=== PATIENT | male | born 1975 | race Caucasian/White ===

== ENCOUNTER 2022-11-18 00:58 | Observation (INO) | payer OTHER ==
[~2022-11-18] VITALS: Ht 182.9 cm; Wt 118.9 kg
[2022-11-18 01:47] LABS: BASOPHILS ABSOLUTE AUTO 0.05 K/mm3 (0.00-0.23); BASOPHILS PERCENT AUTO 0 % (0-2); EOSINOPHILS ABSOLUTE AUTO 0.12 K/mm3 (0.00-0.68); EOSINOPHILS PERCENT AUTO 1 % (0-6); Hemoglobin 15.9 g/dL (13.5-17.5); IMMATURE GRAN ABSOLUTE AUTO 0.13 K/mm3 (0.00-0.10); IMMATURE GRAN PERCENT AUTO 1 % (0-1); LYMPHOCYTES ABSOLUTE AUTO 1.12 K/mm3 (0.84-5.20); LYMPHOCYTES PERCENT AUTO 9 % (21-46); MONOCYTES ABSOLUTE AUTO 0.73 K/mm3 (0.16-1.47); MONOCYTES PERCENT AUTO 6 % (4-13); Mean Corpuscular HGB 29.8 pg (26.0-34.0); Mean Corpuscular HGB Conc 33.8 g/dL (31.5-36.5); Mean Corpuscular Volume 88 fL (80-100); Mean Platelet Volume 10.4 fL (9.1-12.4); NEUTROPHILS ABSOLUTE AUTO 10.69 K/mm3 (1.96-9.15); NEUTROPHILS PERCENT AUTO 83 % (41-73); Platelet Count 239 K/mm3 (150-400); RDW Coefficient Variation 13.9 % (11.7-14.2); RDW Standard Deviation 44.4 fL (35.1-46.3); Red Blood Cell Count 5.34 M/mm3 (4.30-5.90); White Blood Cell Count 12.84 K/mm3 (4.00-11.30)
[2022-11-18 02:00] LABS: Albumin, Blood 3.8 g/dL (3.4-5.0); Bilirubin, Total 1.2 mg/dL (0.1-1.0); Bun/Creatinine Ratio 17.3 (12.0-20.0); Calcium, Blood 9.1 mg/dL (8.5-10.1); Creatinine, Blood 0.81 mg/dL (0.60-1.20); Globulin, Blood 3.9 g/dL (2.2-4.0); Potassium, Blood 3.9 mmol/L (3.5-5.5); Total Protein, Blood 7.7 g/dL (6.4-8.2)
[2022-11-18 02:31] LABS: Source, Urine Clean Catch
[2022-11-18 02:56] LABS: Bilirubin, Urine Neg (Neg); Blood, Urine Neg (Neg); Glucose Qualitative, Urine Neg (Neg); Ketones, Urine Neg (Neg); Leukocyte Esterase, Urine Neg (Neg); Nitrite, Urine Neg (Neg); Protein, Urine 1+ (Neg); Urobilinogen, Urine 1+ (Normal)
[2022-11-18 03:42] LABS: Appearance, Urine Clear (Clear); Color, Urine Yellow (P-Yellow)
--- NOTE | 2022-11-18 05:51 | NUR ---
Patient arrived to unit at 0507, denies nausea and vomitting. States pain has improved and no PRN meds needed at this time. Bowel sounds present, mild pain on palpation. Maintenance fluids started, patient is NPO. Walk to bathroom indepedently. Voiding well. PRN Pain scheduling explained to patient. No questions or concerns at this time.
--- NOTE | 2022-11-18 14:58 | NUR ---
TO MRI VIA WHEELCHAIR
--- NOTE | 2022-11-18 17:06 | NUR ---
returned to room from day surgery. plan per rn is ercp when bed available for transfer
--- NOTE | 2022-11-18 17:54 | NUR ---
TAKING SIPS CLEAR LIQUIDS WITHOUT NAUSA. PT DENIES PAIN REPORTS ABD IS UNCOMFORTABLE. AWAITING TRANSFER FOR ERCP
[2022-11-18 18:45] LABS: Influenza A, PCR NEGATIVE (NEGATIVE); Influenza B, PCR NEGATIVE (NEGATIVE); Resp Syncytial Virus, PCR NEGATIVE (NEGATIVE); SARS-Cov-2 (COVID-19) PCR, MMC NEGATIVE (NEGATIVE)
--- NOTE | 2022-11-18 22:43 | NUR ---
Assumed care at 1915, patient independent in room. Reports abdominal discomfort but no pain. Patient updated about plan to transfer to another facility. Bowel sounds present, abdominal tenderness upon palpation. at bedside shortly. Report given to receiving nurse at 2100. Patient transport arrived at 223.Pt denies pain at this time. No change in VS. Patient left unit at 2241.
== END 2022-11-18 22:50 | disposition short-term general hospital (02) ==
LOC: ER 00:58 → SURS 00:59
PROVIDERS: Emergency Medicine; Student in an Organized Health Care Education/Training Program; Surgery; ADMIT Surgery
DX: K80.42 Calculus of bile duct with acute cholecystitis without obstruction (principal); R74.01 Elevation of levels of liver transaminase levels; E80.6 Other disorders of bilirubin metabolism; E11.9 Type 2 diabetes mellitus without complications
CPT/HCPCS: 0241U; 36415; 74181; 76705; 80053; 82947; 83690; 85025; 93005; 93010; 96361; 96365; 96366; 96375; 96376; 99285-25; G0378; J0295; J0696; J1100; J1170; J1885; J2405; J2704; J3010; J7030; J7120

== ENCOUNTER 2024-04-03 21:02 | Inpatient (IN) | payer SELFPAY ==
[~2024-04-03] VITALS: Ht 182.9 cm; Wt 126.8 kg
[2024-04-03 21:46] LABS: BASOPHILS ABSOLUTE AUTO 0.06 K/mm3 (0.00-0.23); BASOPHILS PERCENT AUTO 1 % (0-2); EOSINOPHILS PERCENT AUTO 2 % (0-6); Hematocrit 51.5 % (37.0-53.0); Hemoglobin 17.4 g/dL (13.5-17.5); IMMATURE GRAN ABSOLUTE AUTO 0.07 K/mm3 (0.00-0.10); IMMATURE GRAN PERCENT AUTO 1 % (0-1); LYMPHOCYTES PERCENT AUTO 19 % (21-46); MONOCYTES ABSOLUTE AUTO 0.87 K/mm3 (0.16-1.47); MONOCYTES PERCENT AUTO 8 % (4-13); Mean Corpuscular HGB 29.7 pg (26.0-34.0); Mean Corpuscular HGB Conc 33.8 g/dL (31.5-36.5); Mean Corpuscular Volume 88 fL (80-100); Mean Platelet Volume 9.7 fL (9.1-12.4); NEUTROPHILS ABSOLUTE AUTO 7.26 K/mm3 (1.96-9.15); NEUTROPHILS PERCENT AUTO 69 % (41-73); Platelet Count 268 K/mm3 (150-400); RDW Standard Deviation 42.1 fL (35.1-46.3); Red Blood Cell Count 5.86 M/mm3 (4.30-5.90); White Blood Cell Count 10.46 K/mm3 (4.00-11.30)
[2024-04-03 21:57] LABS: Bicarbonate Venous 11.8 mmol/L (24.0-30.0); PCO2 Venous 18.2 mmHg (38-42)
[2024-04-03] MEDS ORDERED: NS 1,000 ML IV SCH (22:35)
[2024-04-03 22:42] LABS: Albumin/Globulin Ratio 0.9 (0.8-1.8); Bun/Creatinine Ratio 23.7 (12.0-20.0); Calcium, Blood 8.5 mg/dL (8.5-10.1); Creatinine, Blood 0.72 mg/dL (0.60-1.20); Globulin, Blood 4.4 g/dL (2.2-4.0); Potassium, Blood 3.7 mmol/L (3.5-5.5); Total Protein, Blood 8.4 g/dL (6.4-8.2)
[2024-04-03] MEDS ORDERED: NS KCl 20mEq 1,000 ML IV SCH (22:45)
[2024-04-03] MEDS ORDERED: Insulin Human Regular 100 UNIT in NS 100 ML IV SCH ×2 (22:50→23:55)
[2024-04-03] MEDS ORDERED: Thiamine HCl 100 MG Tab PO ONE (23:20)
[2024-04-03] MEDS ORDERED: Folic Acid 1 MG TAB PO ONE (23:25)
[2024-04-03] MEDS ORDERED: Multivitamins 1 Tab PO ONE (23:25)
[2024-04-03] MEDS ORDERED: D5W-1/2NS 1,000 ML IV ONE (23:45)
[2024-04-03] MEDS ORDERED: Ondansetron HCl 2 MG / ML 2ML Vial IV PRN (23:45)
[2024-04-03] MEDS ORDERED: Metoclopramide HCl 5MG / ML 2ML Vial IV PRN (23:45)
[2024-04-04] VITALS (26 sets, daily range): BP systolic 86–175; BP diastolic 49–100
[2024-04-04] MEDS ORDERED: Enoxaparin 40 MG/0.4 ML SYR SC SCH (00:44)
[2024-04-04] MEDS ORDERED: HydrALAZINE HCl 20 MG / ML 1ML Vial IV ONE ×2 (00:55→02:15)
--- NOTE | 2024-04-04 01:59 | NUR ---
WOUND WOUNDS NOTED ON BLE. PICTURES IN CHART AND HOSPITALIST AWARE.
[2024-04-04] MEDS ORDERED: HydrALAZINE HCl 20 MG / ML 1ML Vial IV PRN (02:15)
[2024-04-04 03:51] LABS: BASOPHILS ABSOLUTE AUTO 0.06 K/mm3 (0.00-0.23); BASOPHILS PERCENT AUTO 1 % (0-2); EOSINOPHILS PERCENT AUTO 2 % (0-6); Hematocrit 44.8 % (37.0-53.0); Hemoglobin 15.1 g/dL (13.5-17.5); IMMATURE GRAN ABSOLUTE AUTO 0.06 K/mm3 (0.00-0.10); IMMATURE GRAN PERCENT AUTO 1 % (0-1); LYMPHOCYTES ABSOLUTE AUTO 1.98 K/mm3 (0.84-5.20); LYMPHOCYTES PERCENT AUTO 22 % (21-46); MONOCYTES ABSOLUTE AUTO 0.87 K/mm3 (0.16-1.47); MONOCYTES PERCENT AUTO 10 % (4-13); Mean Corpuscular HGB 30.1 pg (26.0-34.0); Mean Corpuscular HGB Conc 33.7 g/dL (31.5-36.5); Mean Corpuscular Volume 89 fL (80-100); NEUTROPHILS ABSOLUTE AUTO 5.99 K/mm3 (1.96-9.15); NEUTROPHILS PERCENT AUTO 65 % (41-73); Platelet Count 219 K/mm3 (150-400); RDW Coefficient Variation 13.2 % (11.7-14.2); RDW Standard Deviation 42.9 fL (35.1-46.3); Red Blood Cell Count 5.01 M/mm3 (4.30-5.90); White Blood Cell Count 9.16 K/mm3 (4.00-11.30)
[2024-04-04 04:19] LABS: Albumin, Blood 3.3 g/dL (3.4-5.0); Bilirubin, Total 0.8 mg/dL (0.1-1.0); Bun/Creatinine Ratio 21.4 (12.0-20.0); Calcium, Blood 7.8 mg/dL (8.5-10.1); Creatinine, Blood 0.75 mg/dL (0.60-1.20); Globulin, Blood 3.4 g/dL (2.2-4.0); Potassium, Blood 3.6 mmol/L (3.5-5.5); Total Protein, Blood 6.7 g/dL (6.4-8.2)
[2024-04-04] MEDS ORDERED: Potassium Chloride 20 MEQ TabCR PO ONE ×2 (04:50→16:40)
[2024-04-04] MEDS ORDERED: Acetaminophen 325 MG TABLET PO PRN (05:15)
--- NOTE | 2024-04-04 05:48 | NUR ---
SHIFT SUMMARY PT RESTED QUIETLY T/O NIGHT. REMAINS A&O X4; SPO2 >92% ON RA; MAP >65. INSULIN GTT INFUSING (SEE FLOWSHEET) W/ D5 1/2NS. DENIES CP, NAUSEA, AND ABDOMINAL PAIN. STATES HE "FEELS BETTER" THAN WHEN FIRST ADMITTED. NO ACUTE EVENTS OVERNIGHT.
--- NOTE | 2024-04-04 07:00 | NUR ---
ASSUMPTION OF CARE PT RECEIVING INSULIN 3UNITS/HR AND D5 1/2NS 125ML/HR. HE IS A&OX4. PT HAS MILD HEADACHE, MEDICATED PREVIOUSLY WITH TYLENOL PER EMAR. LUNGS ARE CLEAR. NSR ON MONITOR WITH RATE IN 90S. SBP 140S-150S. ABDOMEN DISTENDED AND FIRM. PT C/O ABD DISCOMFORT BUT DOES NOT DESCRIBE IT PAIN. DENIES NEED TO VOID AT THIS TIME. HOSPITALIST ROUNDED THIS AM. PT UPDATED ON PLAN OF CARE. BED IN LOW POSITION, CALL LIGHT WITHIN REACH.
[2024-04-04] MEDS ORDERED: D5W-1/2NS 1,000 ML IV SCH (08:50)
[2024-04-04] MEDS ORDERED: Lisinopril 10 MG Tab PO SCH (09:00)
[2024-04-04 09:48] LABS: Bun/Creatinine Ratio 25.6 (12.0-20.0); Calcium, Blood 7.9 mg/dL (8.5-10.1); Creatinine, Blood 0.63 mg/dL (0.60-1.20); Potassium, Blood 3.5 mmol/L (3.5-5.5)
[2024-04-04 11:38] LABS: Bun/Creatinine Ratio 24.3 (12.0-20.0); Calcium, Blood 8.3 mg/dL (8.5-10.1); Creatinine, Blood 0.66 mg/dL (0.60-1.20); Potassium, Blood 3.5 mmol/L (3.5-5.5)
[2024-04-04] MEDS ORDERED: Lactated Ringer's 1,000 ML IV ONE (15:00)
[2024-04-04 16:36] LABS: Bun/Creatinine Ratio 22.7 (12.0-20.0); Calcium, Blood 8.2 mg/dL (8.5-10.1); Creatinine, Blood 0.88 mg/dL (0.60-1.20); Potassium, Blood 3.5 mmol/L (3.5-5.5)
--- NOTE | 2024-04-04 17:47 | NUR ---
SHIFT SUMMARY PT RECEIVING INSULIN 3UNITS/HR AND D5 1/2NS 125ML/HR. HE REMAINS A&OX4, DENIES HEADACHE. LUNGS ARE CLEAR, ON RA. NSR ON MONITOR WITH RATE IN 70S-80S, BP STABLE THROUGHOUT THE DAY. SBP 100S-130S. PT CONTINUES TO HAVE ABDOMINAL DISCOMFORT BUT DENIES PAIN. PT HAS VOIDED DARK YELLOW URINE. PLAN TO DRAW LABS AT 1900 AND CALL HOSPITALIST WITH RESULTS. BED IN LOW POSITION, CALL LIGHT WITHIN REACH.
[2024-04-04 19:52] LABS: Bun/Creatinine Ratio 28.4 (12.0-20.0); Calcium, Blood 8.5 mg/dL (8.5-10.1); Creatinine, Blood 0.77 mg/dL (0.60-1.20); Potassium, Blood 3.6 mmol/L (3.5-5.5)
--- NOTE | 2024-04-04 21:09 | NUR ---
ASSUMPTION OF CARE: RECEIVED REPORT FROM SHERRY CHEEK AT 1915. PT ALERT AND ORIENTED, FOLLOWING COMMANDS. ON RA WITH SPO2 >95%. DENIES SOB. INFORMATION TECHNOLOGY COORDINATOR IN PLACE, SR WITH HR 80'S. SBP 130'S-140'S, DENIES CHEST PAIN/PRESSURE. PT ENDORSES GI UPSET AND NAUSEA AT TIMES, MEDICATED PER EMAR WITH RELIEF. ABDOMEN DISTENDED BUT NON TENDER TO TOUCH. BOWEL TONES PRESENT IN ALL QUADRANTS. LUNG SOUNDS CLEAR. PT VOIDING INTO URINAL YELLOW URINE. NO BM YET. PIVS TO RAC AND LAC INFUSING D5 1/2 NS AT 125 ML/HR AND INSULIN AT 3 UNITS/HR. PT TOLERATING ICE CHIPS. BED LOW AND LOCKED, CALL LIGHT IN REACH.
[2024-04-05] VITALS (29 sets, daily range): BP systolic 110–149; BP diastolic 52–89
[2024-04-05 02:32] LABS: Bun/Creatinine Ratio 33.5 (12.0-20.0); Calcium, Blood 8.1 mg/dL (8.5-10.1); Creatinine, Blood 0.63 mg/dL (0.60-1.20); Potassium, Blood 3.2 mmol/L (3.5-5.5)
[2024-04-05] MEDS ORDERED: Potassium Chloride 40 MEQ in NS 250 ML IV ONE (02:40)
--- NOTE | 2024-04-05 05:31 | NUR ---
SHIFT SUMMARY: PT REMAINS ALERT AND ORIENTED. ABLE TO REST OFF AND ON T/O THE SHIFT. REMAINS ON RA WITH SPO2 >92%. DENIES SOB. JDE DEVELOPER IN PLACE, SR WITH HR 70'S-80'S. SBP 100'S. DENIES CHEST PAIN/PRESSURE. PT HAD C/O NAUSEA OFF AND ON T/O THE SHIFT WITH MILD GI UPSET. PT DID NOT WANT ANYMORE NAUSEA MEDS, STATED THE NAUSEA WAS TOLERABLE. ABDOMEN REMAINS MILDLY DISTENDED, NON-TENDER. PT ABLE TO VOID INTO URINAL, YELLOW URINE. PT UP TO BATHROOM WITH LINE ASSIST, ABLE TO HAVE BM. PIVS INTACT. INSULIN INFUSING AT 3 UNITS/HR. D5 1/2 AT 125 ML/HR. BED LOW AND LOCKED, CALL LIGHT IN REACH.
--- NOTE | 2024-04-05 08:15 | NUR ---
ASSUMED CARE OF PT AT 0700 PT RESTING ON BED, APPEARS TO BE SLEEPING BUT ROUSES EASILY TO VERBAL STIMULI. PT DROWSY, BUT RESPONDING APPROPRIATELY. DENIES NAUSEA, SOB, OR CP. INSULIN RUNNING AT 3UNITS/HR, D5 1/2NS @125ML/HR. PT ON VESSEL ORDINARY SEAMAN NSR RATE OF 90, SPB 130S, STABLE. PT ON RA, SATS >95%. PT HAS CALL LIGHT AND IS WILL USE FOR RR NEEDS. SWALLOWS MEDICATION W/OUT ISSUE AND REQUESTS ICE CHIPS. DENIES FURTHER NEEDS AT THIS TIME.
[2024-04-05 09:07] LABS: Bun/Creatinine Ratio 28.6 (12.0-20.0); Calcium, Blood 8.3 mg/dL (8.5-10.1); Creatinine, Blood 0.63 mg/dL (0.60-1.20); Potassium, Blood 3.3 mmol/L (3.5-5.5)
[2024-04-05] MEDS ORDERED: Potassium Chloride 20 MEQ TabCR PO ONE ×2 (09:45→17:05)
[2024-04-05] MEDS ORDERED: Sodium Bicarb 8.4% 1 MEQ/ML 50 ML Vial IV ONE (09:45)
--- NOTE | 2024-04-05 09:46 | NUR ---
DR. BUCK NOTIFIED OF PTS RECENT LAB RESULTS. VERBAL ORDERS VIA TELEPHONE RECIEVED FOR 40MEQ ORAL POTASSIUM, 50 MEQ SODIUM BICARB IV PUSH, AND REPEAT BMP @12OO- ENTERED BY THIS RN.
[2024-04-05 12:35] LABS: Bun/Creatinine Ratio 29.3 (12.0-20.0); Calcium, Blood 8.4 mg/dL (8.5-10.1); Creatinine, Blood 0.58 mg/dL (0.60-1.20); Potassium, Blood 3.4 mmol/L (3.5-5.5)
[2024-04-05 16:28] LABS: Bun/Creatinine Ratio 22.4 (12.0-20.0); Calcium, Blood 8.5 mg/dL (8.5-10.1); Creatinine, Blood 0.76 mg/dL (0.60-1.20); Potassium, Blood 3.2 mmol/L (3.5-5.5)
--- NOTE | 2024-04-05 17:26 | NUR ---
END OF SHIFT SUMMARY NO ACUTE EVENTS TODAY. PT SLEPT PERIODICALLY T/O DAY BUT REMAINED EASILY ROUSIBLE AND COOPERATIVE W/ CARE- AOX4. PT ON CONTINUOUS MONITOR- NSR, RATE OF 80S. BP STABLE. SBP RANGING FROM 120-130S. PT ON RA, O2 SATS> 95%. DENIES NAUSEA, CP, OR SOB. TOLERATED ICE CHIPS W/ OUT ISSUE. PT USED URINAL INDEPENDENTLY AND CALLED FOR LINE ASSIST TO USE TOILET IN ROOM AMBULATED W/ STEADY GAIT AND RETURNED TO BED W/OUT ISSUE. WILL REPORT TO ONCOMING RN WHEN AVAILABLE. CARE CONTINUES.
[2024-04-05] MEDS ORDERED: Insulin Glargine-Yfgn 100 Unit/mL 3 ML SYR SC SCH (18:00)
--- NOTE | 2024-04-05 22:15 | NUR ---
RECEIVED REPORT FROM JUAQUIN DIAMOND CLEAVER. PT ARRIVED TO RM 327 VIA W/C. A/O. INDEP. ON RA. NO NEEDS AT THIS TIME. CALL LT GIVEN.
--- NOTE | 2024-04-05 22:22 | NUR ---
TRANSFER TO 327 PT TRANSFERED TO 327 VIA W/C WITH THIS RN. ALL BELONGINGS AND MEDICATIONS SENT WITH. PT A/O X 4, AND NO DISTRESS NOTED. VSS. ON RA. REPORT GIVEN TO MED RN.
--- NOTE | 2024-04-05 22:40 | NUR ---
ASSUMED CARE OF PT AND THIS RN AGREES TO FRUIT GRADER NOCTE SHIFT ASSESSMENT. PT IS A/OX4, IS INDEPENDENT AND WAS ORIENTED TO NEW ROOM AND CALL SYSTEM. SNACKS PROVIDED AND PT DENIED PAIN AND ALL OTHER COMPLAINTS. HE'S RESTING COMFORTABLY IN BED AT THIS TIME W/TV ON.
[2024-04-06 02:52] VITALS: BP 148/78
--- NOTE | 2024-04-06 05:52 | NUR ---
SUMMARY: PT A/OX4, IS INDEPENDENT IN ROOM AND CALLS APPROPRIATELY TO SPECIFY NEEDS. HE'S SLEPT MAJORITY OF NOCTE SINCE TRANSFER TO FLOOR AND DENIES PAIN AND ALL OTHER COMPLAINTS. SNACKS PROVIDED PER REQUEST, CBG'S STABLE. HE USED TOILET AD [place] AND HAS IV SL'D. NO ACUTE CHANGES, VSS/AFEBRILE. WCTM AND REPORT TO DAY RN.
[2024-04-06 06:07] LABS: Bun/Creatinine Ratio 22.5 (12.0-20.0); Calcium, Blood 8.4 mg/dL (8.5-10.1); Creatinine, Blood 0.62 mg/dL (0.60-1.20); Potassium, Blood 3.4 mmol/L (3.5-5.5)
[2024-04-06 07:12] VITALS: BP 124/68
[2024-04-06] MEDS ORDERED: Insulin Human Lispro 100 Units/ML 3ML Syringe SC SCH (07:30)
[2024-04-06] MEDS ORDERED: Insulin NPH 100 Unit / ML 10ML Vial SC ONE (07:35)
[2024-04-06] MEDS ORDERED: Prinivil10 MG PO (12:30)
[2024-04-06] MEDS ORDERED: BASAGLAR K100 UNIT/3 SC (12:32)
[2024-04-06] MEDS ORDERED: HUMALOG KW100 UNIT/1 (12:34)
--- NOTE | 2024-04-06 14:53 | NUR ---
DISCHARGE: PT D/C @8435 VIA WHEELCHAIR. MEDICATIONS FAXED TO [email or web address]. HARD SCRIPT FOR INSULIN PENS SENT WITH PT. IV X2 REMOVED BY BOOKS SALESPERSON WO COMPLICATIONS. NO QUESTIONS AT TIME OF D/C.
--- NOTE | 2024-04-07 12:00 | NUR ---
1145- [facility] CALLED AND ASKED IF DR. BUCK WAS OKAY WITH WRITING THE PRESCRIPTION FOR HUMALOG AND GLARGINE FOR 15 ML EACH (1 BOX) VS ONLY 3 ML (1 SYRINGE). RECIEVED VERBAL FROM DR. BUCK FOR OKAY FOR PT TO HAVE 1 BOX OF BOTH GLARGINE AND HUMALOG. RN RECIEVED VERBAL FOR MAX DOSE OF MED SLIDING SCALE TID BEFORE MEALS TO BE 10 UNITS (10 UNITS MAX BEFORE EACH MEAL TID USING THE MEDIUM CORRECTION SCALE). RN ALSO RECEIVED VERBAL FOR PT TO HAVE INSULIN PEN NEEDLES, GLUCOMETER, AND STRIP TESTS FOR THE GLUCOMETER. [facility] UPDATED WITH CLARIFICATION.
== END 2024-04-06 13:47 | disposition home or self-care (01) | DRG 638 ==
LOC: ER 21:02 → ICUE 21:03 → MEDS 04-04 16:43 → ICUE 04-04 16:43 → MEDS 04-05 22:15
PROVIDERS: Internal Medicine; Student in an Organized Health Care Education/Training Program; ADMIT Internal Medicine
DX: E11.10 Type 2 diabetes mellitus with ketoacidosis without coma (principal); E87.1 Hypo-osmolality and hyponatremia; I10 Essential (primary) hypertension; E86.0 Dehydration; Z98.890 Other specified postprocedural states
CPT/HCPCS: 36415; 80048; 80053; 82803; 82947; 83036; 85025; 93005; 93010; 96360; 96361; 99285-25; A9270; G0378; J0360; J1650; J1815; J2405; J3480; J7030; J7042; J7050; J7120

== ENCOUNTER 2024-04-08 09:00 | Emergency (ER) | payer SELFPAY ==
[~2024-04-08] VITALS: Ht 182.9 cm; Wt 129.3 kg
[~2024-04-08 09:00] MED LIST: BASAGLAR K100 UNIT/3 SC; HUMALOG KW100 UNIT/1; Prinivil10 MG PO
[2024-04-08 09:35] VITALS: BP 172/99
[2024-04-08] MEDS ORDERED: Colchicine 0.6 MG TAB PO ONE (12:15)
[2024-04-08] MEDS ORDERED: HUMULIN R100 UNIT/2 SC (12:16)
[2024-04-08] MEDS ORDERED: COLCHICINE0.6 MG PO (12:16)
== END 2024-04-08 12:49 | disposition home or self-care (01) ==
LOC: ER 09:00
DX: M25.562 Pain in left knee (principal); E11.8 Type 2 diabetes mellitus with unspecified complications; Z87.39 Personal history of other diseases of the musculoskeletal system and connective tissue; Z79.4 Long term (current) use of insulin; Z79.899 Other long term (current) drug therapy
CPT/HCPCS: 73562-LT; 99283-25; A9270